=== PATIENT | female | born 1980 | race Two or more races ===

== ENCOUNTER 2020-02-27 06:22 | Day surgery (SDC) | payer OTHER ==
[2020-02-27] MEDS ORDERED: PERCOCET 5-3251 EACH PO (09:42)
[2020-02-27] MEDS ORDERED: KETO10TA2 PO (09:42)
== END 2020-02-27 16:20 | disposition home or self-care (01) ==
LOC: CIR.AMB 06:22
PROVIDERS: ATTEND Surgery
DX: D36.7 Benign neoplasm of other specified sites (principal); R19.09 Other intra-abdominal and pelvic swelling, mass and lump; Z20.828 Contact with and (suspected) exposure to other viral communicable diseases

== ENCOUNTER 2021-04-20 11:29 | Inpatient (IN) | payer OTHER ==
[~2021-04-20] VITALS: Ht 172.7 cm; Wt 71.7 kg
[~2021-04-20 11:29] MED LIST: KETO10TA2 PO; PERCOCET 5-3251 EACH PO
[2021-04-22] MEDS ORDERED: PAROXETINE HCL20 MG (14:41)
[2021-04-22] MEDS ORDERED: INTESTINEX680 M1 (14:41)
[2021-04-22] MEDS ORDERED: OMEPRAZOLE20 MG (14:41)
[2021-04-22] MEDS ORDERED: CLOTRIMAZOLE-BE15 G1 (14:41)
[2021-04-22] MEDS ORDERED: MIRTAZAPINE30 MG (14:42)
[2021-04-22] MEDS ORDERED: ZOLPIDEM TARTRA10 MG (14:42)
[2021-04-22] MEDS ORDERED: DICLOFENAC SOD100 GM (14:42)
[2021-04-25] MEDS ORDERED: PERCOCET 5-3251 EACH PO (14:52)
== END 2021-04-25 17:14 | disposition home or self-care (01) | DRG 331 ==
LOC: O/R 04-22 08:33 → SURH 04-22 11:00 → SURG 04-22 15:26 → SURH 04-23 08:56
PROVIDERS: ADMIT Surgery; ATTEND Surgery
PROC: 0DTN4ZZ Resection of Sigmoid Colon, Percutaneous Endoscopic Approach (ICD-10-PCS; principal; 2021-04-23)
PROC: 0DBP4ZZ Excision of Rectum, Percutaneous Endoscopic Approach (ICD-10-PCS; 2021-04-23)
PROC: 0DJD8ZZ Inspection of Lower Intestinal Tract, Via Natural or Artificial Opening Endoscopic (ICD-10-PCS; 2021-04-23)
DX: K57.30 Diverticulosis of large intestine without perforation or abscess without bleeding (principal); K62.89 Other specified diseases of anus and rectum; N73.6 Female pelvic peritoneal adhesions (postinfective); N99.4 Postprocedural pelvic peritoneal adhesions; Z20.822 Contact with and (suspected) exposure to COVID-19

== ENCOUNTER 2022-01-24 13:17 | Emergency (ER) | payer OTHER ==
[~2022-01-24] VITALS: Ht 172.7 cm; Wt 74.8 kg
[~2022-01-24 13:17] MED LIST changes: +CLOTRIMAZOLE-BE15 G1; +DICLOFENAC SOD100 GM; +INTESTINEX680 M1; +MIRTAZAPINE30 MG; +OMEPRAZOLE20 MG; +PAROXETINE HCL20 MG; +ZOLPIDEM TARTRA10 MG
== END 2022-01-24 20:46 | disposition home or self-care (01) ==
LOC: ER 13:17
DX: R10.9 Unspecified abdominal pain (principal); K57.90 Diverticulosis of intestine, part unspecified, without perforation or abscess without bleeding